=== PATIENT | male | born 1990 | race Two or more races ===

== ENCOUNTER 2022-10-13 21:28 | Emergency (ER) | payer OTHER ==
[~2022-10-13] VITALS: Ht 165.1 cm; Wt 72.6 kg
[2022-10-13 22:01] VITALS: BP 125/83
[2022-10-14] MEDS ORDERED: CEPH500 PO (00:59)
== END 2022-10-14 01:18 | disposition home or self-care (01) ==
LOC: ER 21:28
DX: S71.112A Laceration without foreign body, left thigh, initial encounter (principal); W29.3XXA Contact with powered garden and outdoor hand tools and machinery, initial encounter; Z23 Encounter for immunization
CPT/HCPCS: 12002; 90471; 90714; 99282-25; A9270